=== PATIENT | male | born 1960 | race Caucasian/White ===

== ENCOUNTER 2017-07-09 15:41 | Emergency (ER) | payer OTHER ==
[2017-07-09 15:48] VITALS: BP 135/87
== END 2017-07-09 17:47 | disposition home or self-care (01) ==
LOC: ED 15:41
DX: K02.9 Dental caries, unspecified (principal)

== ENCOUNTER 2018-06-23 16:06 | Emergency (ER) | payer OTHER ==
[~2018-06-23] VITALS: Ht 177.8 cm; Wt 95.4 kg
[2018-06-23 16:11] VITALS: BP 117/77; Ht 177.8 cm; Wt 95.4 kg
[2018-06-23 17:35] LABS: UA SPECIFIC GRAVITY 1.015 (1.005-1.035); microscopic required? YES; urine erythrocyte 1+ (NEGATIVE)
== END 2018-06-23 18:01 | disposition home or self-care (01) ==
LOC: ED 16:06
PROVIDERS: Emergency Medicine
DX: T41.45XA Adverse effect of unspecified anesthetic, initial encounter (principal); N40.0 Benign prostatic hyperplasia without lower urinary tract symptoms; Z98.890 Other specified postprocedural states; Y92.89 Other specified places as the place of occurrence of the external cause

== ENCOUNTER 2019-06-13 22:28 | Emergency (ER) | payer OTHER ==
[~2019-06-13] VITALS: Ht 177.8 cm; Wt 95.3 kg
[2019-06-13 23:29] VITALS: BP 130/77
== END 2019-06-13 23:29 | disposition home or self-care (01) ==
LOC: ED 22:28
DX: J03.90 Acute tonsillitis, unspecified (principal)
CPT/HCPCS: J2920